=== PATIENT | male | born 2000 | race Caucasian/White ===

== ENCOUNTER 2019-01-30 18:05 | Emergency (ER) | payer OTHER, SELFPAY ==
[2019-01-30 18:07] VITALS: BP 148/75; PULSE 69; RESP 18; TEMP 36.6; O2SAT 98; BMI 25.4
--- NOTE | 2019-01-30 18:26 | CT_ITS ---
STUDY: CT ABDOMEN AND PELVIS WITH CONTRAST REASON FOR EXAM: Male, 18 years old. Rectal bleeding. Pain. RADIATION DOSAGE (If Supplied By Facility): CTDIvol = ( 11.07 ) mGy, DLP = ( 609.61 ) mGycm TECHNIQUE: Transaxial images were obtained from the dome of the diaphragm to the symphysis pubis without oral contrast. 100ML ml of Isovue 300 contrast was administered. Sagittal and coronal images were reconstructed. Individualized dose optimization techniques were used for this CT. COMPARISON: None. FINDINGS: The visualized lung bases are clear. The visualized portions of the heart and pericardium are within normal limits. There are no calcified gallstones present. The liver is within normal limits. There are no suspicious hepatic lesions. The spleen is normal in size. The pancreas is within normal limits. The adrenal glands are within normal limits. There are no renal or ureteral stones. There is no hydronephrosis. There are no focal renal lesions. Normal visualized stomach. There is no bowel obstruction or inflammation. The patient is status post appendectomy. The aorta is normal in caliber. There is trace free fluid noted in the pelvis. There is no free air or fluid collection. There are no destructive osseous lesions. CT/Abdomen/Pelvis WITH Contrast IMPRESSION: Trace pelvic free fluid. Otherwise, unremarkable contrast-enhanced CT of the abdomen and pelvis. Electronically Signed: Antolin Paige, at 20:23 EDT Tel , Service support ,
[2019-01-30 18:52] LABS: Absolute Lymphocyte Count 2.21 X10^3/ul (0.83-4.51); Absolute Neutrophil Count 3.2 X10^3/uL (2.0-7.7); Basophil# 0.04 X10^3/uL; Basophil% 0.6 % (0-1); Eosinophil# 0.23 X10^3/uL; Eosinophils% 3.7 % (0-5); Hematocrit 44.2 % (40-54); Hemoglobin 15.3 g/dl (13.0-16.5); Lymphocyte # 2.21 X10^3/ul (4.0); Lymphocyte % 35.1 % (19-41); Mean Corp Hgb Conc 34.6 g/gl (32-36); Mean Corpuscular Volume 83.7 fL (80-94); Mean Platelet Vol. 8.9 fl (6.2-12.0); Monocyte# 0.65 X10^3/uL; Monocyte% 10.3 % (0-10); Neutrophil # 3.15 X10^3/uL (2.7-7.7); Neutrophil % 50.1 % (47-70); Platelet Count 191 K/mm3 (150-450); RBC Distribution Width CV 12.4 % (11.6-14.6); RBC Distribution Width SD 37.5 fl (35.1-43.9); Red Blood Count 5.28 M/mm3 (4.6-6.2); White Blood Count 6.3 K/mm3 (4.4-11.0)
[2019-01-30 18:53] LABS: POSITIVE COUNT NO; POSITIVE DIFFERENTIAL NO; POSITIVE MORPHOLOGY NO
[2019-01-30 18:56] VITALS: BP 138/83; BP 139/87; BP 145/94; PULSE 53; PULSE 55; PULSE 62
[2019-01-30] MEDS: 0.9% Normal Saline 1,000 ML 125 ML IV (18:56)
[2019-01-30 19:02] LABS: Anion Gap 6 (5-15); BUN 9 mg/dL (7-18); BUN/Creat Ratio 8.8 RATIO (10-20); Calcium,Total 9.2 mg/dL (8.5-10.1); Chloride 103 mmol/L (98-107); Creatinine, Serum 1.02 mg/dL (0.70-1.30); EST Glomerular Filtration Rate 98 mL/min (>60); Est Glom Filt Rate - Afr Amer 119 mL/min (>60); Estimated Creatinine Clearance 130.56 ml/min; Glucose 85 mg/dL (74-106); Potassium 3.6 mmol/L (3.5-5.1); Sodium Level 138 mmol/L (136-145)
--- NOTE | 2019-01-30 19:11 | ED.VISSUMM ---
- ER Visit Summary Date of Service: 01/30/19 Chief Complaint: [Abdominal pain and rectal bleeding] History of Present Illness: The patient is a 18 M [presents the emergency department with symptoms that started 2 days ago. Patient states that he initially started with abdominal cramping and watery stool after eating some spicy food which is never bothered him before. Patient describes the pain is just above his belt line. Patient states the pain felt like gas cramps. Yesterday patient developed some blood within the stool that he noticed. He denies any fever. Patient is never had blood in stool before. There is a family history of diverticulosis but no history of inflammatory bowel disease. He has no medical history. Patient denies any trauma to his abdomen. He denies urinary symptoms. Denies recent illness.] Physical Examination: [HEENT-PERRLA, EOMI. Cranial nerves II through XII grossly intact. TMs clear. Mucous membranes moist. No adenopathy. Cardiovascular-regular rate and rhythm without murmur or ectopy Lungs-clear to auscultation, chest wall stable without crepitus or subcu emphysema Abdomen-normoactive bowel sounds, soft, nontender, no rebound or rigidity, no peritoneal signs. Rectal exam-no hemorrhoids noted no external lesions noted. There is no fissures noted. On digital rectal exam no masses palpated in the rectal vault. Patient had brown stool but also had what appeared to be maroon-colored blood. Extremities-intact ?4, normal range of motion, normal pulses, atraumatic] Test Results: [CBC with differential obtained showed a white count of 6.3, hemoglobin 15, hematocrit 44, platelets 191. Chemistries unremarkable.] CT scan of the abdomen pelvis with IV and p.o. contrast was unremarkable. Orthostatic vital signs were normal. Emergency Department Course and Treatment: [Case was discussed with Dr. Velazquez who asked that we start patient on a proton pump inhibitor and have him follow-up with the office.] Treatment Plan: [Follow-up with general surgeon and will start on Prevacid] Disposition: [Discharged home in stable condition] Impression: [Normal pain Rectal bleeding-stable] This note was generated with [employer] software. It may contain incorrect words, spelling, and punctuation that were not noted in review of the chart prior to signing ED Disposition - Plan for ED Patient: Referrals: Care Physician,No Primary [Primary Care Provider] -
[2019-01-30 19:42] VITALS: BP 134/80; PULSE 78; RESP 14; O2SAT 100
--- NOTE | 2019-01-30 20:39 | ED.DEP ---
ED Disposition - Plan for ED Patient: Instructions: ED Hematochezia Stable Prescriptions: Lansoprazole [Prevacid] 30 mg PO DAILY #30 cap Referrals: Care Physician,No Primary [Primary Care Provider] - Jarod Velazquez MD [STAFF PHYSICIAN] - 3-5 Days
[2019-01-30 20:49] VITALS: BP 134/80; PULSE 78; RESP 15; O2SAT 100
== END 2019-01-30 20:50 | disposition home or self-care (01) ==
LOC: ED 18:54
PROVIDERS: Emergency Provider Emergency Medicine
DX: K62.5 Hemorrhage of anus and rectum (principal); R10.9 Unspecified abdominal pain
CPT/HCPCS: 74177; 80048; 82274; 85025; 86850; 86900; 96360; 96361; 99284; J7030; Q9967; A4216